=== PATIENT | female | born 1995 | race Caucasian/White ===

== ENCOUNTER 2022-03-11 12:13 | Emergency (ER) | payer SELFPAY ==
[~2022-03-11] VITALS: Ht 162.6 cm; Wt 83.2 kg
[2022-03-11 12:22] VITALS: BP 123/73; PULSE 72; TEMP 98.2
== END 2022-03-11 13:09 | disposition home or self-care (01) ==
LOC: COL.ER 12:13
DX: J35.8 Other chronic diseases of tonsils and adenoids (principal); K11.6 Mucocele of salivary gland; F17.200 Nicotine dependence, unspecified, uncomplicated; Z28.310 Unvaccinated for COVID-19